=== PATIENT | female | born 1955 | race Caucasian/White ===

== ENCOUNTER → 2018-09-03 09:02 | Outpatient (CLI) | payer OTHER | END | disposition home or self-care (01) | LOC: D.HCCARDIO 09:02 | PROVIDERS: ATTEND Internal Medicine Cardiovascular Disease | DX: I25.10 Atherosclerotic heart disease of native coronary artery without angina pectoris (principal) ==

== ENCOUNTER 2019-07-31 14:26 | Observation (INO) | payer OTHER ==
[~2019-07-31] VITALS: Ht 165.1 cm; Wt 77.3 kg
[2019-07-31] MEDS ORDERED: CYMBALTA60 MG (14:55)
[2019-07-31] MEDS ORDERED: CYMBALTA60 MG PO (14:56)
[2019-07-31] MEDS ORDERED: BUSPAR 15 MG TA15 MG PO (14:57)
[2019-07-31] MEDS ORDERED: FENOFIBRATE160 MG PO (14:57)
[2019-07-31] MEDS ORDERED: ESTRACE 0.5 MG0.5 MG PO (14:58)
[2019-07-31] MEDS ORDERED: METHOCARBAMOL500 MG PO (14:58)
[2019-07-31] MEDS ORDERED: CYCLOBENZAPRINE10 MG PO (14:58)
[2019-07-31] MEDS ORDERED: PROVERA2.5 MG PO (14:59)
[2019-07-31 15:05] LABS: BASOPHILS 0.6 % (0-2); EOSINOPHILS 1.2 % (0-7); HEMATOCRIT 39.7 % (36.0-48.0); HEMOGLOBIN 12.8 g/dL (12-16); IMMATURE GRANULOCYTES 0.2 % (0-5); MCHC 32.2 g/dL (31.0-37.0); MEAN PLATELET VOLUME 9.7 fL (7.4-10.4); MONOCYTES 7.7 % (2-11); NEUTROPHILS 54.3 % (40-80); PLATELET COUNT 302 10x3/uL (130-400); RBC 4.41 10x6/uL (4.00-5.40); RDW 13.2 % (11.5-14.5); WBC 5.1 10x3/uL (4.8-10.8)
[2019-07-31 15:25] LABS: CALC OSMOLALITY 287 mosm/kg (275-300); CALCIUM 9.7 mg/dL (8.5-10.1); CARBON DIOXIDE 21.5 mmol/L (21.0-32.0); CHLORIDE - SERUM 105 mmol/L (98-107); GLUCOSE 127 mg/dL (74-106); POTASSIUM - SERUM 3.4 mmol/L (3.5-5.1); SODIUM 143 mmol/L (136-145); UREA NITROGEN 15 mg/dL (7-18); eGFR NON AFRICAN AMERICAN 59 mL/min (90-120)
[2019-07-31 15:30] VITALS: BP 149/70
[2019-07-31 15:38] LABS: ALBUMIN 4.3 g/dL (3.4-5.0); ALKALINE PHOSPHATASE 31 U/L (30-120); ALT (SGPT) 32 U/L (10-68); BILIRUBIN - TOTAL 0.32 mg/dL (0.2-1.3); LIPASE 148 U/L (73-393); PRO BNP 17 pg/mL (0-125); PROTEIN - SERUM 8.1 g/dL (6.4-8.2)
[2019-07-31 15:39] LABS: TROPONIN-I < 0.017 ng/mL (0.000-0.060)
[2019-07-31 16:30] VITALS: BP 138/85
[2019-07-31 16:35] LABS: BILIRUBIN NEGATIVE (NEGATIVE); GLUCOSE NEGATIVE (NEGATIVE); KETONE NEGATIVE (NEGATIVE); NITRITE NEGATIVE (NEGATIVE); SPECIFIC GRAVITY 1.015 (1.005-1.020); UROBILINOGEN NORMAL (NORMAL)
[2019-07-31 16:37] LABS: BACTERIA FEW /hpf (NEGATIVE); CALCIUM OXALATE CRYSTALS 0-5 /hpf (NONE SEEN); WHITE CELLS - URINE 0-5 /hpf (NEGATIVE)
[2019-07-31 17:30] VITALS: BP 151/79
[2019-07-31 18:23] VITALS: BP 156/86
[2019-07-31] MEDS ORDERED: CLARITIN 10 MG10 MG PO (18:56)
[2019-07-31] MEDS ORDERED: FLUTICASONE PRO16 GM NASAL (18:56)
[2019-07-31] MEDS ORDERED: CARAFATE1 G PO (19:00)
[2019-07-31 19:10] LABS: CKMB 0.5 U/L (0.0-3.6); CREATINE KINASE 71 UL (21-215); MAGNESIUM - SERUM 2.3 mg/dL (1.8-2.4); TROPONIN-I < 0.017 ng/mL (0.000-0.060)
[2019-07-31 19:21] VITALS: BMI 28.3
[2019-07-31 20:00] VITALS: BP 163/73
--- NOTE | 2019-07-31 20:00 | NUR ---
PATIENT RESTING IN BED WITH EYES OPEN. NO S/S OF DISTRESS. NO C/O AT THIS TIME. PATIENT HAS A RIGHT WRIST SALINE LOC. IV IS PATENT WITHOUT REDNESS, SWELLING, OR TENDERNESS. PATIENT IS ON TELEMETRY: 86 BPM NORMAL SINUS. PATIENT IS ON A CLEAR LIQUID DIET. NPO AFTER 0200. CALL LIGHT IN PLACE WILL CONTINUE TO MONITOR.
[2019-07-31] MEDS ORDERED: DEXILANT60 MG PO (21:04)
[2019-08-01] VITALS (9 sets, daily range): BP systolic 108–138; BP diastolic 43–73; Ht 165.1 cm; Wt 77.3 kg
[2019-08-01 04:15] LABS: BASOPHILS 0.5 % (0-2); EOSINOPHILS 1.3 % (0-7); HEMATOCRIT 36.9 % (36.0-48.0); HEMOGLOBIN 11.8 g/dL (12-16); IMMATURE GRANULOCYTES 0.1 % (0-5); LYMPHOCYTES 28.9 % (15-50); MCH 29.4 pg (26.0-34.0); MCV 91.8 fL (80.0-100.0); MEAN PLATELET VOLUME 9.7 fL (7.4-10.4); MONOCYTES 8.5 % (2-11); NEUTROPHILS 60.7 % (40-80); PLATELET COUNT 277 10x3/uL (130-400); RBC 4.02 10x6/uL (4.00-5.40); RDW 13.4 % (11.5-14.5)
--- NOTE | 2019-08-01 04:15 | NUR ---
I have reviewed this patient and I concur with the Shift Assessment completed by the Licensed Practical Nurse today this shift.
[2019-08-01 04:57] LABS: ALBUMIN 3.7 g/dL (3.4-5.0); ALKALINE PHOSPHATASE 28 U/L (30-120); ALT (SGPT) 34 U/L (10-68); CALC OSMOLALITY 283 mosm/kg (275-300); CALCIUM 9.1 mg/dL (8.5-10.1); CHLORIDE - SERUM 107 mmol/L (98-107); CKMB 0.8 U/L (0.0-3.6); CREATINE KINASE 91 UL (21-215); CREATININE - SERUM 0.9 mg/dL (0.6-1.3); GLUCOSE 88 mg/dL (74-106); LIPASE 119 U/L (73-393); MAGNESIUM - SERUM 2.2 mg/dL (1.8-2.4); PROTEIN - SERUM 7.3 g/dL (6.4-8.2); SODIUM 143 mmol/L (136-145); UREA NITROGEN 12 mg/dL (7-18); eGFR NON AFRICAN AMERICAN 67 mL/min (90-120)
[2019-08-01 05:05] LABS: CARBON DIOXIDE 28.4 mmol/L (21.0-32.0); TROPONIN-I < 0.017 ng/mL (0.000-0.060)
--- NOTE | 2019-08-01 07:39 | NUR ---
PT RESTING IN BED WITH EYES CLOSED, AT THE BEDSIDE. NO S/S OF DISTRESS AT THIS TIME. IV LOCATED TO RIGHT WRIST CURRENTLY SL. WILL CONT TO MONITOR.
--- NOTE | 2019-08-01 10:28 | NUR ---
PT IS AAO X 4. SPOUSE IS AT BEDSIDE. PT SIGNED CONSENTS FOR LAPAROSCOP[IC CHOLECYSTECTOMY AND DENIES FURTHER QUESTIONS/CONCERNS/NEEDS AT THIS TIME. ALL SIGNED CONSENTS PLACED IN PT CHART.
[2019-08-01 11:33] LABS: CKMB 0.6 U/L (0.0-3.6); CREATINE KINASE 95 UL (21-215); TROPONIN-I < 0.017 ng/mL (0.000-0.060)
[2019-08-01] MEDS ORDERED: HYDROCODON-ACE1 EAC7 PO (13:14)
--- NOTE | 2019-08-01 14:36 | NUR ---
PT RETURNS TO ROOM AFTER PROCEDURE ESCORTED BY RECOVERY ROOM STAFF. PT IS AAO X 4 AND RESPIRATIONS ARE EVEN AND UNLABORED. LAP SITES X 4 TO ABDOMEN AND ARE CDI. PT DENIES PRESENCE OF N/V/PAIN AT THIS TIME. SPOUSE AT BEDSIDE. WILL REPORT FINDINGS TO SHIFT NURSE. BED IS IN THE LOWEST POSITION. CALL LIGHT AND BEDSIDE TABLE ARE WITHIN REACH. SIDE RAILS X 2. PT DENIES FURTHER NEEDS.
--- NOTE | 2019-08-01 16:58 | NUR ---
DC`D HOME WITH VIA WHEELCHAIR AND HOSPITAL STAFF.
== END 2019-08-01 16:59 | disposition home or self-care (01) ==
LOC: D.ER 14:26 → D.MS 17:38 → OBSVTIME 17:38 → D.MS 17:38
PROVIDERS: Family Medicine; ADMIT Emergency Medicine; ATTEND Emergency Medicine
DX: K82.8 Other specified diseases of gallbladder (principal); K21.9 Gastro-esophageal reflux disease without esophagitis; M19.90 Unspecified osteoarthritis, unspecified site; E87.6 Hypokalemia; K81.1 Chronic cholecystitis

== ENCOUNTER → 2019-11-07 08:33 | Outpatient (CLI) | payer OTHER ==
[2019-08-01 13:17] VITALS: BMI 28.3
[~2019-11-07 08:33] MED LIST: BUSPAR 15 MG TA15 MG PO; CARAFATE1 G PO; CLARITIN 10 MG10 MG PO; CYCLOBENZAPRINE10 MG PO; CYMBALTA60 MG; CYMBALTA60 MG PO; DEXILANT60 MG PO; ESTRACE 0.5 MG0.5 MG PO; FENOFIBRATE160 MG PO; FLUTICASONE PRO16 GM NASAL; HYDROCODON-ACE1 EAC7 PO; METHOCARBAMOL500 MG PO; PROVERA2.5 MG PO
== END | disposition home or self-care (01) ==
LOC: D.MAMMO 08:33
PROVIDERS: ATTEND Family Medicine
DX: Z12.31 Encounter for screening mammogram for malignant neoplasm of breast (principal)